=== PATIENT | female | born 1935 | race Caucasian/White ===

== ENCOUNTER 2022-10-14 09:55 | Outpatient (CLI) | payer MEDICARE ==
[2022-10-14] MEDS ORDERED: Iopamidol 300 61% 100 ML VIAL FS ONE (10:10)
== END 2022-10-14 09:56 | disposition home or self-care (01) ==
LOC: CSHCT 09:55
PROVIDERS: ATTEND Internal Medicine
DX: C25.9 Malignant neoplasm of pancreas, unspecified (principal); M54.9 Dorsalgia, unspecified; I86.8 Varicose veins of other specified sites; Z96.89 Presence of other specified functional implants; C78.02 Secondary malignant neoplasm of left lung; C78.01 Secondary malignant neoplasm of right lung; K59.00 Constipation, unspecified; R18.8 Other ascites
CPT/HCPCS: 71260; 74177